=== PATIENT | male | born 1955 ===

== ENCOUNTER 2016-10-20 13:05 | Observation (INO) | payer BC, MEDICAID ==
[2016-10-20 13:19] VITALS: O2SAT 100
[2016-10-20] MEDS ORDERED: Albuterol-Ipratrop 3 mg / 0.5 (3 ml) UD IH STA ×2 (13:22→13:23)
--- NOTE | 2016-10-20 13:31 | ED PDOC ---
Arrival/HPI - General Chief Complaint: Shortness Of Breath Time Seen by Provider: 10/20/16 13:12 Historian: Patient - History of Present Illness Narrative History of Present Illness (Text): 10/20/16 13:22 A 61 year old male, whose past medical history includes asthma, presents to the emergency department complaining of shortness of breath 30 minutes prior to arrival. Patient reports he used his inhaler 4 times, with no relief. As per EMS , patient received 1 Duoneb and 1 Albuterol on route to emergency room. Patient denies any fever, chills, body aches, nausea, vomiting, diarrhea, abdominal pain , urinary symptoms, chest pain or any other complaints. PMD: Dr. Ethan Goddard in [place] Time/Duration: 1/2 hour Symptom Course: Unchanged Quality: Other Context: Other Past Medical History - Provider Review Nursing Documentation Reviewed: Yes - Cardiac Hx Hypertension: Yes - Pulmonary Hx Asthma: Yes - Psychiatric Hx Substance Use: No - Surgical History Hx Arthroscopy: Yes (B/L knees) - Anesthesia Hx Anesthesia: Yes Hx Anesthesia Reactions: No Hx Malignant Hyperthermia: No Family/Social History - Physician Review Nursing Documentation Reviewed: Yes Family/Social History: No Known Family HX Smoking Status: Never Smoked Hx Alcohol Use: No Hx Substance Use: No Allergies/Home Meds Allergies/Adverse Reactions: Allergies No Known Allergies Allergy (Verified 10/20/16 13:19) Review of Systems - Physician Review All systems were reviewed & negative as marked: Yes - Review of Systems Constitutional: absent: Fevers, Night Sweats Respiratory: SOB Cardiovascular: absent: Chest Pain Gastrointestinal: absent: Abdominal Pain, Diarrhea, Nausea, Vomiting Musculoskeletal: absent: Myalgias Physical Exam Vital Signs Reviewed: Yes Vital Signs Temp Pulse Resp BP Pulse Ox 10/20/16 15:47 110 H 20 131/66 100 10/20/16 13:32 97.8 F 99 H 20 120/91 H 100 10/20/16 13:07 98.7 F 103 H 18 143/100 H 100 Temperature: Afebrile Blood Pressure: Hypertensive Pulse: Tachycardic Respiratory Rate: Normal Appearance: Positive for: Well-Appearing, Non-Toxic, Comfortable Pain Distress: None Mental Status: Positive for: Alert and Oriented X 3 - Systems Exam Head: Present: Atraumatic, Normocephalic Pupils: Present: PERRL Extroacular Muscles: Present: EOMI Conjunctiva: Present: Normal Mouth: Present: Moist Mucous Membranes Neck: Present: Normal Range of Motion Respiratory/Chest: Present: Good Air Exchange, Wheezes (Diffuse wheezing bilaterally), Retracting (+1 retraction). No: Respiratory Distress, Accessory Muscle Use Cardiovascular: Present: Regular Rate and Rhythm, Normal S1, S2. No: Murmurs Abdomen: Present: Normal Bowel Sounds. No: Tenderness, Distention, Peritoneal Signs Back: Present: Normal Inspection Upper Extremity: Present: Normal Inspection. No: Cyanosis, Edema Lower Extremity: Present: Normal Inspection. No: Edema, CALF TENDERNESS Neurological: Present: GCS=15, CN II-XII Intact, Speech Normal Skin: Present: Warm, Dry, Normal Color. No: Rashes Psychiatric: Present: Alert, Oriented x 3, Normal Insight, Normal Concentration Medical Decision Making ED Course and Treatment: 10/20/16 13:22 Impression: A 61 year old male with shortness of breath. Diffuse wheezing and +1 retraction on exam. Differential Diagnosis included but are not limited to: Asthma exacerbation Plan: -- Chest xray -- EKG -- Labs -- Duoneb and Solumedrol -- Reassess and disposition - Lab Interpretations I have reviewed the lab results: Yes - RAD Interpretation Radiology Orders: 10/20/16 13:21 CHEST PORTABLE [RAD] Stat - Medication Orders Current Medication Orders: Discontinued Medications Albuterol/Ipratropium (Duoneb 3 Mg/0.5 Mg (3 Ml) Ud) 3 ml IH STAT STA Stop: 10/20/16 13:23 Last Admin: 10/20/16 14:00 Dose: 3 ML Albuterol/Ipratropium (Duoneb 3 Mg/0.5 Mg (3 Ml) Ud) 3 ml IH STAT STA Stop: 10/20/16 13:24 Last Admin: 10/20/16 15:49 Dose: 3 ML Methylprednisolone (Solu-Medrol) 125 mg IVP STAT STA Stop: 10/20/16 13:21 Last Admin: 10/20/16 14:00 Dose: 125 MG IVP Administration Document 10/20/16 14:00 EQ (Rec: 10/20/16 15:49 EQ [facility] [id number]) Charges for Administration # of IVP Administrations 1 ED OBSERVATION Date of observation admission: 10/20/16 Time of observation admission: 13:23 - Observation admission statement Patient is being placed in observation because:: Asthma exacerbation - Goals of Observation Goals of observation are:: Monitor and treat symptom - Progress Note Progress Note: 10/20/16 13:23 Patient with asthma exacerbation. Will order chest xray, EKG and labs. Duoneb and Solumedrol ordered. Will evaluate after treatment. EKG shows NSR at [address]-segment elevations, normal intervals. Interpreted by me. Report Date : 10/20/2016 13:45:51 Procedure: Chest xray Dictator : Kadeem Bunn MD IMPRESSION: No active disease. 10/20/16 15:33 On reevaluation, patient's lungs are clear. No tachypnea. Patient walking in emergency department without shortness of breath. Will give Albuterol pump and Prednisone, and patient will follow up with PMD. Patient agrees with plan. Patient is stable for discharge. Patient was instructed to follow up with physician in 1-2 days or return if symptoms worsen or new concerning symptoms arise. - Scribe Statement The provider has reviewed the documentation as recorded by the Scribe Benita Davis Provider Scribe Attestation: All medical record entries made by the Scribe were at my direction and personally dictated by me. I have reviewed the chart and agree that the record accurately reflects my personal performance of the history, physical exam, medical decision making, and the department course for this patient. I have also personally directed, reviewed, and agree with the discharge instructions and disposition. Disposition/Present on Arrival - Present on Arrival Any Indicators Present on Arrival: No History of DVT/PE: No History of Uncontrolled Diabetes: No Urinary Catheter: No History of Decub. Ulcer: No History Surgical Site Infection Following: None - Disposition Have Diagnosis and Disposition been Completed?: Yes Diagnosis: Asthma attack Disposition: HOME/ ROUTINE Disposition Time: 13:23 Patient Plan: Discharge Patient Problems: Current Active Problems Problem Status Diagnosed Asthma attack Acute Condition: IMPROVED
[2016-10-20 13:40] VITALS: RESP 20; TEMP 97.8
--- NOTE | 2016-10-20 13:47 | RAD ---
HISTORY: wheezing r/o pna COMPARISON: No prior. FINDINGS: LUNGS: No active pulmonary disease. PLEURA: No significant pleural effusion identified, no pneumothorax apparent. CARDIOVASCULAR: Normal. OSSEOUS STRUCTURES: No significant abnormalities. VISUALIZED UPPER ABDOMEN: Normal. OTHER FINDINGS: None. IMPRESSION: No active disease.
[2016-10-20 14:54] LABS: ADD MANUAL DIFF? NO
[2016-10-20 15:01] LABS: BASO # 0.02 K/mm3 (0.0-2.0); BASO % 0.2 % (0.0-3.0); EOS # 0.1 (0.0-0.7); EOS % 1.4 % (1.5-5.0); GRAN # 5.17 (1.4-6.5); GRAN % 59.8 % (50.0-68.0); HEMATOCRIT 41.5 % (42.0-52.0); LYMPH # 2.9 (1.2-3.4); MEAN CELL VOLUME 90.2 fL (80.0-105.0); MEAN CORPUSCULAR HEMOGLOBIN 30.7 pg (25.0-35.0); MONO # 0.5 (0.1-0.6); MONO % 5.6 % (1.0-6.0); PLATELET COUNT 294 10^3/uL (120.0-450.0); RED CELL DISTRIBUTION WIDTH 12.6 % (11.5-14.5); WHITE BLOOD COUNT 8.6 10^3/ul (4.5-11.0)
[2016-10-20 15:08] LABS: BLOOD UREA NITROGEN 16 mg/dL (7-21); CALCIUM 8.9 mg/dL (8.4-10.5); CARBON DIOXIDE 29 mmol/L (21-33); CHLORIDE 97 mmol/L (98-107); GFR AFRICAN-AMERICAN > 60; GLUCOSE,RANDOM 121 mg/dL (70-110); POTASSIUM 4.1 mmol/L (3.6-5.0); SODIUM 136 mmol/L (132-148)
[2016-10-20 15:48] VITALS: BP 131/66
[2016-10-20 16:24] VITALS: PULSE 98
--- NOTE | 2016-10-21 11:21 | CARD ---
APPROVED REPORT EKG Measurement Heart [id number] <Conclusion> Normal sinus rhythm Normal ECG
== END 2016-10-20 15:28 | disposition home or self-care (01) ==
LOC: ED 13:05 → EROBSV 13:23
PROVIDERS: ADMIT Emergency Medicine; ATTEND Emergency Medicine
DX: J45.909 Unspecified asthma, uncomplicated (principal)
CPT/HCPCS: 36415; 71010; 80048; 85025; 93005; 96374; 99283; G0378; J2930